=== PATIENT | female | born 1965 | race African-American/Black ===

== ENCOUNTER 2020-07-06 17:08 | Emergency (ER) | payer BC ==
[~2020-07-06] VITALS: Ht 172.7 cm; Wt 113.7 kg
[~2020-07-06 17:08] MED LIST: AZIT250T PO
[2020-07-06 17:27] VITALS: BP 133/71
[2020-07-06] MEDS ORDERED: CEPH500C5 PO (17:58)
--- NOTE | 2020-07-06 18:10 | NUR ---
wound to anterior front thigh dressed with 4x4 guaze, pt geno well
== END 2020-07-06 18:26 | disposition home or self-care (01) ==
LOC: ER 17:08
DX: L03.116 Cellulitis of left lower limb (principal); Z79.899 Other long term (current) drug therapy
CPT/HCPCS: 99283